=== PATIENT | female | born 1985 | race Caucasian/White ===

== ENCOUNTER 2018-08-31 14:02 | Observation (INO) | payer MEDICAID, SELFPAY ==
[2018-08-31 14:45] LABS: Chloride 98 mmol/L (98-107); Potassium 3.7 mmol/L (3.5-5.1); Sodium 136 mmol/L (136-145)
[2018-08-31] MEDS: Metoclopramide 10 MG TAB PO (15:30)
[2018-08-31] MEDS: Lactated Ringers 1,000 ML 150 ML IV (15:30)
--- NOTE | 2018-08-31 16:34 | DSE_ITS ---
Date of service: 08/31/18 Time of Service: 16:33 DS: Diagnosis Discharge Diagnosis (1) : Status: Acute (2) Hyperemesis affecting , antepartum: Status: Acute Asessment and Plan: Pt is a 32yo female with a LMP 06/30/18 who was initially seen at [facility] for office visit. The purpose of the visit was to discuss hyperemesis. Patient reports that for last month she has had daily nausea with other emesis or gagging during the day. She reports losing approximately 4 pounds since the onset of her symptoms. She was given a prescription for ondansetron which did not appear to help the nausea but she is also experienced significant constipation as result of the ondansetron. She is wondering if there is an alternative to her current medication regime. She is also concerned about the health of the fetus. Patient was was admitted to the center for brief observation. Laboratory studies were within normal limits no evidence of electrolyte imbalance. Vital signs stable brief bedside ultrasound was performed showing a viable talley IUP approximately 8 weeks 2 days estimated gestational age. Normal-appearing uterus adnexa and pelvis. Given a liter of lactated Ringer's a dose of Reglan 10 mg orally and 1 dose of 40 mg of Protonix IV. The plan at this time is to discharge her to home have her follow-up for scheduled visit on 09/02/2018 to assess satisfaction with the medication regime. Patient was counseled to take Dulcolax this evening and tomorrow morning to treat her constipation. She is agreeable to this plan Discharge Plan Disposition Patient Disposition: HOME Condition: Fair Discharge Details Reason For Visit: HYPERMESIS IN FIRST TRIMESTER Admit Date/Time: 08/31/18 14:02 Admit Provider: Claudia Benjamin Attending Provider: Claudia Benjamin Primary Care Provider: None,None Hospital Course Hospital Course: [facility] most of nausea malaise and concerns about both her and her fetuses well-being. She underwent evaluation on the center that showed normal electrolytes and she was given the opportunity to begin Reglan 10 mg orally every 6 hours which will be continued and on an outpatient basis and given a dose of IV Protonix. The plan is to begin a proton pump inhibitor for her GERD symptoms. The plan is to have her follow-up in 2 days for a previously scheduled appointment to obtain a formal dating ultrasound and also to assess satisfaction with medications and compliance. She is agreeable to this plan Home Meds and New Rx's Prescriptions: No Action Atabex DHA 200 200 mg capsule PO DAILY RF: 0 multivitamin [Daily Multiple] 1 EACH tablet 1 ea PO DAILY RF: 0 evening primrose oil [Evening Melvin] 500 MG capsule 500 mg PO DAILY RF: 0 folic acid 1 MG tablet 1 mg PO DAILY RF: 0 turmeric root extract 500 MG capsule 500 mg PO DAILY RF: 0 bee pollen 550 MG capsule 550 mg PO DAILY RF: 0 ondansetron HCl 4 mg tablet 4 mg PO TID PRN (Reason: nausea and vomiting) 5 Days Qty: 15 RF: 1 Discharge Instructions Additional Instructions: Begin Reglan 10 mg every 6 hours [id number]. You may use the ondansetron as needed but only after you have taken the Dulcolax to treat your constipation. A prescription for antacid has been faxed to your pharmacy in addition to the Reglan. Keep her appointment with Dr. Freire on Wednesday and let him know how you are feeling and if the medication has been effective. Activity:: Activity as Tolerated Equipment/Supplies:: No Equipment Needed Diet:: As Tolerated Discharge Orders Discharge Orders: Discharge Order (Routine); Ordered 08/31/18 Ordered By: Claudia Benjamin DS: Summary Time spent discussing smoking cessation with patient: 3 to 10 minutes Exam Const General: comfortable and no acute distress Resp Effort & Inspection: normal respiratory effort General: deferred Other: Transabdominal ultrasound performed while on the center is a viable talley intrauterine with a crown rump length consistent with 8-week 2-day gestation. Normal-appearing adnexa pelvis and uterus. 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
[2018-08-31] MEDS: Pantoprazole 40 MG VIAL IVP (16:52)
== END 2018-08-31 17:30 | disposition home or self-care (01) ==
PROVIDERS: Admitting Provider Obstetrics & Gynecology Gynecology; Visit Provider Obstetrics & Gynecology Gynecology
DX: O21.0 Mild hyperemesis gravidarum (principal); Z3A.08 8 weeks gestation of pregnancy
CPT/HCPCS: 36415; 80051; 96360; 96361; 99238; 76817; G0378

== ENCOUNTER 2018-09-13 16:37 | Outpatient (CLI) | payer MEDICAID, SELFPAY ==
[2018-09-13 17:28] LABS: Abs Immature Grans 0.01 k/cumm (0.0-0.09); Absolute Basophil Count 0.02 k/cumm (0.0-0.2); Absolute Eosinophil Count 0.05 k/cumm (0.0-0.7); Absolute Lymphocyte Count 1.89 k/cumm (1.2-3.4); Absolute Monocyte Count 0.74 k/cumm (0.11-0.7); Absolute Neutrophil Count 6.45 k/cumm (1.2-6.7); Basophils % 0.2; Eosinophils % 0.5; HCT 36.9 % (36.0-46.0); HGB 13.4 g/dL (12.0-15.5); Immature Grans % 0.1; Lymphocytes % 20.6; Mean Corp. HGB Concentration 36.3 g/dL (32.0-36.0); Mean Corpuscular Hemoglobin 31.2 pg (27.0-33.0); Mean Platelet Volume 9.8 fL (8.0-11.0); Monocytes % 8.1; Neutrophils % 70.5; Platelet Count 261 x1000/uL (130-400); RBC 4.29 m/cumm (4.00-5.20); White Blood Cell Count 9.16 k/cumm (4.4-10.8)
[2018-09-13 18:36] LABS: TSH (W/Ref FT4) 0.34 uIU/mL (0.358-3.74)
[2018-09-13 19:03] LABS: FREE T4 1.01 ng/dL (0.76-1.46)
[2018-09-15 09:26] LABS: Hepatitis B Surface Ag Negative (NEGAT)
[2018-09-15 09:49] LABS: HIV-1/2 Ag & Ab Screen Negative (NEGAT)
[2018-09-15 10:14] LABS: Hepatitis C Ab w Rflx HCV PCR Negative (NEGAT)
[2018-09-15 12:13] LABS: Varicella IgG Antibody Positive
[2018-09-15 12:16] LABS: Rubella IgG Ab (UVM) Positive; Syphilis Serology (RPR) Negative (Negative)
== END 2018-09-13 16:57 ==
PROVIDERS: Visit Provider Advanced Practice Midwife
DX: Z34.91 Encounter for supervision of normal pregnancy, unspecified, first trimester (principal); Z11.59 Encounter for screening for other viral diseases; Z01.84 Encounter for antibody response examination; Z11.4 Encounter for screening for human immunodeficiency virus [HIV]
CPT/HCPCS: 36415; 80055; 86787; 86803; 86850; 86900; 86901; 87340; 87389; 84439; 84443; 86592; 86762

== ENCOUNTER 2018-09-13 16:44 | Outpatient (REF) | payer MEDICAID, SELFPAY ==
[2018-09-13 18:26] LABS: *AMPHETAMINES SCREEN URINE Negative (Negative); *BARBITURATES SCREEN URINE Negative (Negative); *BENZODIAZEPINES SCREEN URINE Negative (Negative); Cannabinoids THC Negative (Negative); Cocaine Screen,Urine Negative (Negative); METHADONE URINE SCREEN Negative (Negative); OPIATES URINE SCREEN Negative (Negative)
[2018-09-13 18:42] LABS: Tricyclic Antidepressants Negative (Negative)
[2018-09-15 15:15] LABS: Chlamydia Result Negative; GC Result Negative; Specimen Description CERVICAL
[2018-09-20 07:17] LABS: Buprenorphine Negative; Norbuprenorphine Negative
== END 2018-09-13 17:04 ==
LOC: LBN 16:44
PROVIDERS: Visit Provider Advanced Practice Midwife
DX: Z34.91 Encounter for supervision of normal pregnancy, unspecified, first trimester (principal); Z11.3 Encounter for screening for infections with a predominantly sexual mode of transmission
CPT/HCPCS: 80307; 87491; 87591; 87086

== ENCOUNTER 2018-10-07 09:31 | Outpatient (CLI) | payer MEDICAID, SELFPAY ==
[2018-10-07 09:59] LABS: Kit/Specimen SENT
== END 2018-10-07 09:51 ==
PROVIDERS: Visit Provider Advanced Practice Midwife
DX: Z34.91 Encounter for supervision of normal pregnancy, unspecified, first trimester (principal)
CPT/HCPCS: 36415

== ENCOUNTER 2018-11-07 01:10 | Outpatient (CLI) | payer MEDICAID, SELFPAY ==
--- NOTE | 2018-11-07 16:11 | DI.US_ITS ---
Many abnormalities cannot be diagnosed. A normal exam does not exclude a congenital anomaly. Radiology No. LMP: Exam Date: 11/07/18 [facility] wks days on EDC ([facility]) 04/05/19 Confirmed: HISTORY: SURVEY, Z34.90 PREDICTED GESTATIONAL AGE NUMBER 18.5 weeks with a range of 17.5 week to 19.5 weeks. 1 Determined by___1STUS___LMP___HISTORY Info. pertaining to fetus # PLACENTA PRESENTATION Grade I Cephalic___ Anterior___Posterior__X_ Breech____ Right Left___X____ Transverse(head right___ Fundal___Low-lying___Previa___ Transverse(head left___ Varying___X___ BIOMETRY AMNIOTIC FLUID BPD: 44 mm 19.3 weeks Normal HC: 166 mm 19.2 weeks AC: 137 mm 19.1 weeks FL: 27 mm 18.1 weeks AMNIOTIC FLUID INDEX >26 WK CRL: mm weeks Cisterna Magna: 3.3 mm CI: 80.6 RUQ: LUQ Cerebellum: 1/97 cm EFW: 257 grams 49th Percentile RLQ: LLQ Total: cms Composite AGE= 19 wks EDC by US____04/03/19 BIOPHYSICAL PROFILE ANATOMY IDENTIFIED SCORE 0/2 Heart: 4-Chamber_X__Rate:BPM__145___ LVOT: X__ RVOT: X___ Amniotic Fluid(>2cms)____ Stomach:__X____ Kidneys:____X___ Respirations (>30 secs) Bladder: X___ Post. Fossa:___X Body Flex/Extension 3 vessel cord:__X Ventricles:___X cord insertion:__X___ Lips:_X___ Extremity Flex/Extension spinal morphology:___X Nose:X Total Score= Palate: X__ NS=not seen OB ultrasound was performed utilizing second trimester protocol. biometry is consistent with a gestational age of 19 weeks 0 days and an EDC of 04/03/19. Placenta is posterior with no evidence of a placenta previa. There is a normal quantity of amniotic fluid. anomaly screen is within normal limits as per the OB ultrasound worksheet.
== END 2018-11-07 01:30 ==
PROVIDERS: PCP General Practice; Visit Provider Advanced Practice Midwife
DX: Z34.92 Encounter for supervision of normal pregnancy, unspecified, second trimester (principal)
CPT/HCPCS: 76805

== ENCOUNTER 2019-01-12 13:43 | Outpatient (CLI) | payer MEDICAID, SELFPAY ==
[2019-01-12 14:09] LABS: HCT 35.1 % (36.0-46.0); HGB 11.9 g/dL (12.0-15.5); Mean Corp. HGB Concentration 33.9 g/dL (32.0-36.0); Mean Corpuscular Volume 91.4 fL (80-95); Mean Platelet Volume 9.6 fL (8.0-11.0); Platelet Count 227 x1000/uL (130-400); RBC 3.84 m/cumm (4.00-5.20); RBC Distribution Width 12.2 % (11.7-14.6); White Blood Cell Count 9.21 k/cumm (4.4-10.8)
[2019-01-12 14:16] LABS: Glucose,1 Hr (Glucola) 126 mg/dL (80-140)
== END 2019-01-12 14:03 ==
PROVIDERS: PCP General Practice; Visit Provider Advanced Practice Midwife
DX: Z34.92 Encounter for supervision of normal pregnancy, unspecified, second trimester (principal)
CPT/HCPCS: 82950; 85027

== ENCOUNTER 2019-03-17 12:51 | Outpatient (REF) | payer MEDICAID, SELFPAY | END 2019-03-17 13:11 | LOC: LBN 12:51 | PROVIDERS: PCP General Practice; Visit Provider Advanced Practice Midwife | DX: Z36.85 Encounter for antenatal screening for Streptococcus B; Z34.93 Encounter for supervision of normal pregnancy, unspecified, third trimester | CPT/HCPCS: 87081 ==

== ENCOUNTER 2019-04-11 13:28 | Inpatient (IN) | payer MEDICAID, SELFPAY ==
[2019-04-11 14:54] LABS: HCT 33.5 % (36.0-46.0); HGB 11.1 g/dL (12.0-15.5); Mean Corp. HGB Concentration 33.1 g/dL (32.0-36.0); Mean Corpuscular Hemoglobin 29.1 pg (27.0-33.0); Mean Corpuscular Volume 87.7 fL (80-95); Platelet Count 219 x1000/uL (130-400); RBC 3.82 m/cumm (4.00-5.20); White Blood Cell Count 7.96 k/cumm (4.4-10.8)
[2019-04-11 15:03] LABS: ROM Plus Positive
[2019-04-11] MEDS: Lactated Ringers 500 ML IV ×2 (18:30→19:05)
[2019-04-11] MEDS: FentaNYL/ROPIvacaine 2 mcg/ml and 0.1% 200 ML CADD Cassette EP (19:38)
[2019-04-11] MEDS: Calcium Carbonate *TUMS* 500 MG CHEW 1000 MG PO (23:34)
[2019-04-12] MEDS: fentaNYL 100 MCG/2 ML VIAL (02:58)
[2019-04-12] MEDS: Lactated Ringers 1,000 ML 125 ML IV (07:20)
[2019-04-12] MEDS: Lidocaine 1% Multi-Dose 20 ML VIAL (07:31)
[2019-04-12] MEDS: Acetaminophen 325 MG TAB 650 MG PO ×2 (08:44→19:50)
[2019-04-12] MEDS: Ibuprofen 600 MG TAB PO ×2 (08:45→19:50)
[2019-04-12] MEDS: Docusate Sodium 100 MG CAP PO (19:50)
[2019-04-13] MEDS: Docusate Sodium 100 MG CAP PO ×2 (12:00→12:02)
== END 2019-04-13 15:50 | disposition home or self-care (01) | DRG 807 ==
PROVIDERS: Admitting Provider Advanced Practice Midwife; PCP General Practice; Visit Provider Advanced Practice Midwife
DX: O48.0 Post-term pregnancy (principal); Z37.0 Single live birth; Z3A.40 40 weeks gestation of pregnancy; O64.8XX0 Obstructed labor due to other malposition and malpresentation, not applicable or unspecified; O62.1 Secondary uterine inertia; O70.1 Second degree perineal laceration during delivery; Z67.40 Type O blood, Rh positive
CPT/HCPCS: 84112; 85027; 86850; 86900; 86901; G0378; J3010; J3490

== ENCOUNTER 2019-12-23 13:01 | Emergency (ER) | payer MEDICAID, SELFPAY ==
--- NOTE | 2019-12-23 13:04 | ED.GENADUL_ITS ---
Discharge Plan Disposition Patient Disposition: HOME Condition: Good Discharge Details Chief Complaint: DentalOral Clinical Impression: Dental infection Primary Care Provider: Roberto Abdalla ED Provider: Cayla Mac Home Meds and New Rx's Prescriptions: New amoxicillin-pot clavulanate [Augmentin] 875-125 mg tablet 1 tab PO BID Qty: 13 RF: 0 Continued norethindrone (contraceptive) [Debi] 0.35 mg tablet 0.35 mg PO DAILY Qty: 84 RF: 3 Discharge Instructions Instructions: Dental Abscess (ED) Additional Instructions: Encourage water intake. Tylenol and ibuprofen as needed for discomfort. Please take the antibiotics as prescribed. Even if symptoms improve, please take the entire course. If you develop increased swelling, fever/chills or other new/worsening symptom please seek care urgently once again. Please contact local dentist regarding follow-up, list attached. Referrals: Rboerto Abdalla NP [Primary Care Provider] - Discharge Data Discharge Date/Time-TO BE ENTERED AT DEPARTURE: 12/23/19 15:07 Medical Decision Making <JENNIFER Abad - Last Filed: 12/24/19 13:51> Patient is a pleasant 34-year-old female presents today with chief complaint of left posterior dental pain. She reports the pain began 3 days ago and is progressively been increasing. Today, the pain is the point that she was having difficulty talking had a right letters to her mother. States that she was having difficulty opening her mouth. She denies any fevers or chills. States the pain can radiate down the left lateral neck. States that she has had infections in these teeth before. Does have history of impacted wisdom teeth on the side. Did attempt to get in with a dentist but was unsuccessful secondary to pandemic. She denies status. Denies dysphasia. No rash. No SOB. No fevers or chills. On exam, patient is resting comfortably and appears nontoxic. Vital signs significant for blood pressure of 143/88 and pulse of 94. She is afebrile. No lymphadenopathy. She does have trismus able to open 1 fingerbreadth at this time. There is swelling and erythema associated with the left inferior posterior tooth that does extend into the crevice between the upper and lower dentition. Tonsils are without abnormality. Uvula is midline. No swelling under the tongue. I am concerned for potential space-occupying abscess leading to trismus. Patient is also evaluated by Dr. Gale is questioning impacted tooth with overgrowth of gumline and infection. Will obtain CT to evaluate for potential abscess. Patient given dose of clindamycin. FINDINGS: Sinuses: Mild left maxillary sinus disease. Nasopharynx: Unremarkable. Oropharynx: Unremarkable. No significant tonsillar enlargement. Hypopharynx: Unremarkable. Larynx: Unremarkable. Normal epiglottis. Retropharyngeal space: Unremarkable. Submandibular/Parotid glands: Normal. Glands are normal in size. Thyroid: Normal. No enlarged or calcified nodules. Lymph nodes: Mildly prominent upper cervical nodes bilaterally. Trachea: Visualized trachea is unremarkable. Lungs: Unremarkable as visualized. Dental: Apparent lucency or cavity left upper 3rd molar. Correlate clinically. Bones/joints: Unremarkable. No acute fracture. Soft tissues: Edematous change subcutaneous soft tissues superficial and anterior to the left masseter muscle. No definite focal fluid collection identified. IMPRESSION: 1. Edematous change subcutaneous soft tissues superficial and anterior to the left masseter muscle. No definite focal fluid collection identified. 2. Apparent lucency or cavity left upper 3rd molar. Correlate clinically Discussed these findings with the patient. Advise dental infection. Encourage hydration. Encourage close follow-up with dentist. List of open and local dentist were given to the patient, she will call on Wednesday to schedule follow-up appointment. Patient started on Augmentin. She was given strict return precautions. We discussed home options to help pain control. All of her questions or concerns were addressed and she is in agreement this plan. <Nas Gale MD - Last Filed: 12/24/19 13:46> Patient seen, examined, and discussed with JENNIFER Mac. Labs reviewed. CT of the face reviewed by radiology and no signs of abscess. Suspect impacted and infected tooth. Plan to treat with augmentin and have patient follow-up with dentist. I agree with treatment plan as discussed/documented. HPI <JENNIFER Abad - Last Filed: 12/24/19 13:51> General Mode of arrival: ambulatory . Date/Time Provider Initiated Documentation: 12/23/19 13:04 . Limitations to Documentation: no limitations . Information obtained by: patient and RN notes reviewed . History of Present Illness 34 year old F presents to the emergency department with the chief complaint of left tooth pain, described as mild, with intensity rated at 1. Quality is described as aching, and is localized to the mouth. Patient reports radiation to (jaw and upper left neck). Patient started experiencing this day(s) (4) and it has been constant. Medication improves symptom(s), (currently improved after NSAID) Eating worsens symptoms . Patient notes denies chest pain, cough, fever/chills, headaches, loss of appetite, nausea/vomiting, rash and shortness of breath. Patient did receive the following treatments prior to arrival, NSAID Related Data Home Medications Medication Instructions Recorded Confirmed norethindrone (contraceptive) 0.35 0.35 mg PO DAILY #84 tab 11/07/19 12/23/19 mg tablet amoxicillin-pot clavulanate 1 tab PO BID #13 tab 12/23/19 [Augmentin] Previous Rx's Medication Instructions Recorded norethindrone (contraceptive) 0.35 0.35 mg PO DAILY #84 tab 11/07/19 mg tablet amoxicillin-pot clavulanate 1 tab PO BID #13 tab 12/23/19 [Augmentin] Allergies Allergy/AdvReac Type Severity Reaction Status Date / Time No Known Allergies Allergy Verified 12/23/19 13:13 Review of Systems <JENNIFER Abad - Last Filed: 12/24/19 13:51> Constitutional Constitutional: Reports as per HPI, Denies chills, Denies fatigue, Denies fever(s), Denies headache(s) and Denies poor appetite Eyes Eyes: Denies change in vision and Denies irritation ENT Ears, Nose, Mouth, and Throat: Reports as per HPI, Reports dental pain, Denies dysphagia, Denies dizziness, Denies dry mouth, Denies ear discharge, Denies otalgia, Reports facial pain, Denies headache(s), Denies hoarseness, Denies lip swelling, Denies nasal congestion, Denies odynophagia and Denies sore throat Cardiovascular Cardiovascular: Reports as per HPI and Denies chest pain Respiratory Respiratory: Reports as per HPI and Denies cough Gastrointestinal Gastrointestinal: Reports as per HPI, Denies dysphagia, Denies nausea, Denies od ynophagia and Denies vomiting Integumentary/Breasts Skin/Breast: Reports as per HPI, Denies erythema, Denies rash and Denies skin pain Neurologic Neurologic: Reports as per HPI, Denies dizziness and Denies headache(s) Endocrine Endocrine: Denies fatigue Allergic/Immunologic Allergic/Immunologic: Denies lip swelling PFSH <JENNIFER Abad - Last Filed: 12/24/19 13:51> Medical History Fear of developing breast cancer (Acute) MGM: Postmenopausal breast CA. Maternal aunt: premenopausal breast CA in her 40's. . Maternal aunt: premenopausal breast CA. BRCA neg. MAunt: ovarian CA. Alive. Mom- no cancer. [place] [facility] [place]. 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 Date GA/Weeks # Outcome Route Wgt Sex Labor Lgth Anesthes ia Location [facility] 10/19/09 42 No Successful vaginal 3.799 kg Female [facility] 04/12/19 40 No Successful vaginal 4.252 kg Male 9hrs 26 min Lara Rodriguez Delivery Date: 10/19/09 vacuum delivery. intact. fracture near coccyx and symphysic pubis. Severe pain after delivery. Fractures identified later during PT. Rosa Maria Francis Delivery Date: 04/12/19 Forceps delivery, arrest of descent, perineal laceration requiring repair Fariha Hameed Exam <JENNIFER Abad - Last Filed: 12/24/19 13:51> Const General: cooperative, healthy appearing, comfortable, no acute distress, well developed and well groomed Nutritional Appearance: average body habitus and well nourished Orientation: alert and awake [facility] Head: normal to inspection, normocephalic and atraumatic Ears: hearing grossly normal bilaterally, external ears normal and TM's normal bilaterally General nose exam: external nose normal and nares normal Face and sinus: abnormal facial exam (swelling left cheek), sinuses nontender, face asymmetric, no crepitus, no ecchymosis, no erythema, no fluctuance, no maxillary instability and no tenderness Mouth: lip normal, tongue normal, salivary ducts normal, moist mucous membranes, no muffled voice (sounds clear, patient feels off from her baseline), trismus and restricted motion Throat: posterior oropharynx normal, tonsils normal and uvula midline Eyes General: appearance normal, both eyes and all related structures Neck Neck: normal visual inspection, full ROM, no lymphadenopathy, supple and no anterior neck swelling Resp Effort & Inspection: normal respiratory effort, able to speak in complete sentences and no respiratory distress Auscultation: clear to auscultation bilaterally, no rales, no rhonchi and no wheezes Cardio Rate: regular rate Rhythm: regular rhythm Heart Sounds: S1 normal and S2 normal Skin General skin exam: no rashes or lesions noted Trauma: no lacerations or abrasions Neuro General: patient alert and patient awake Cognition: normal cognition Speech: speech normal Gait: normal gait Psych Appearance: grossly normal and well kempt Mental Status: mental status grossly normal Speech and Movement: speech and movement normal
[2019-12-23 13:06] VITALS: BP 143/88; PULSE 94; RESP 18; TEMP 36.3; O2SAT 97
[2019-12-23 13:41] LABS: Abs Immature Grans 0.02 k/cumm (0.0-0.09); Absolute Basophil Count 0.01 k/cumm (0.0-0.2); Absolute Eosinophil Count 0.15 k/cumm (0.0-0.7); Absolute Lymphocyte Count 1.66 k/cumm (1.2-3.4); Absolute Monocyte Count 1.04 k/cumm (0.11-0.7); Absolute Neutrophil Count 6.53 k/cumm (1.2-6.7); Basophils % 0.1; Eosinophils % 1.6; HCT 39.9 % (36.0-46.0); HGB 14.1 g/dL (12.0-15.5); Immature Grans % 0.2 %; Lymphocytes % 17.6; Mean Corp. HGB Concentration 35.3 g/dL (32.0-36.0); Mean Corpuscular Hemoglobin 31.1 pg (27.0-33.0); Mean Corpuscular Volume 87.9 fL (80-95); Mean Platelet Volume 9.2 fL (8.0-11.0); Monocytes % 11.1; Neutrophils % 69.4; Platelet Count 276 x1000/uL (130-400); RBC 4.54 m/cumm (4.00-5.20); RBC Distribution Width 11.9 % (11.7-14.6); White Blood Cell Count 9.41 k/cumm (4.4-10.8)
[2019-12-23] MEDS: Omnipaque 350 MG/ML 100 ML BTL IJ (13:52)
[2019-12-23 13:53] LABS: ALT 20 U/L (14-59); AST 16 U/L (15-37); Albumin 4.3 g/dL (3.4-5.0); Alkaline Phosphatase 97 U/L (46-116); Anion Gap 8.1 mmol/L (3-11); BUN 11 mg/dL (7-18); Bilirubin, Total 0.6 mg/dL (0.2-1.0); CO2 27.9 mmol/L (21.0-32.0); CREATININE 0.74 mg/dL (0.55-1.02); Calcium 9.4 mg/dL (8.5-10.1); Chloride 102 mmol/L (98-107); Glucose 121 mg/dL (74-106); Potassium 3.6 mmol/L (3.5-5.1); Sodium 138 mmol/L (136-145)
[2019-12-23] MEDS: Normal Saline - Diluent 50 ML VIAL IV (13:53)
--- NOTE | 2019-12-23 13:55 | DI.CT_ITS ---
EXAM: CT NECK W CLINICAL HISTORY: dental abscess with trismus COMPARISON: No exams were available for comparison FINDINGS: CT examination of the neck was performed with intravenous infusion 100 cc of Omnipaque 350. Images obtained through the lung apices are unremarkable. Tracheolaryngeal structures appear intact. Visualized brain and orbits are unremarkable. Mild mucoperiosteal thickening noted left maxillary antrum. Otherwise paranasal sinuses and mastoid air cells appear clear. No cervical adenopathy. Salivary glands appear intact. No vascular abnormality identified. There is soft tissue edema associated with subcutaneous fat adjacent to left masseter muscle. A marke r is placed at this site. There is an apparent dental cavity, left 3rd molar. No abscess identified in the soft tissues.. IMPRESSION: Findings suggesting soft tissue infection associated with dental disease as described above. No soft tissue abscess seen. No other significant findings.
[2019-12-23] MEDS: Normal Saline 1,000 ML 1000 ML IV (14:05)
[2019-12-23] MEDS: CLINDAMYCIN 600 MG/50 ML BAG 100 MG IVPB (14:05)
[2019-12-23 14:25] VITALS: BP 118/73; PULSE 85; RESP 16; TEMP 36.6; O2SAT 100
--- NOTE | 2019-12-23 14:36 | DI.VRAD_ITS ---
PROCEDURE INFORMATION: Exam: CT Neck With Contrast Exam date and time: 12/23/2019 1:19 PM Age: 34 years old Clinical indication: Patient HX: Dental abscess with trismus, patient sts pain left side of face, swelling are area of bb marker on CT. Bb marker placed to note area of pain and swelling. TECHNIQUE: Imaging protocol: Computed tomography images of the neck with intravenous contrast. Radiation optimization: All CT scans at this facility use at least one of these dose optimization techniques: automated exposure control; mA and/or kV adjustment per patient size (includes targeted exams where dose is matched to clinical indication); or iterative reconstruction. Contrast material: OMNIPAQUE 350; Contrast volume: 100 ml; Contrast route: IV; COMPARISON: No relevant prior studies available. FINDINGS: Sinuses: Mild left maxillary sinus disease. Nasopharynx: Unremarkable. Oropharynx: Unremarkable. No significant tonsillar enlargement. Hypopharynx: Unremarkable. Larynx: Unremarkable. Normal epiglottis. Retropharyngeal space: Unremarkable. Submandibular/Parotid glands: Normal. Glands are normal in size. Thyroid: Normal. No enlarged or calcified nodules. Lymph nodes: Mildly prominent upper cervical nodes bilaterally. Trachea: Visualized trachea is unremarkable. Lungs: Unremarkable as visualized. Dental: Apparent lucency or cavity left upper 3rd molar. Correlate clinically. Bones/joints: Unremarkable. No acute fracture. Soft tissues: Edematous change subcutaneous soft tissues superficial and anterior to the left masseter muscle. No definite focal fluid collection identified. IMPRESSION: 1. Edematous change subcutaneous soft tissues superficial and anterior to the left masseter muscle. No definite focal fluid collection identified. 2. Apparent lucency or cavity left upper 3rd molar. Correlate clinically. Dictated and Authenticated by: Dean Hernandez MD. Ordering:MAHI Kulkarni MD
[2019-12-23] MEDS: Amoxicillin 875/Clav. 125 TAB PO (14:55)
[2019-12-23 15:14] VITALS: BP 118/73; PULSE 85; RESP 16; TEMP 36.6; O2SAT 100
== END 2019-12-23 15:07 | disposition home or self-care (01) ==
PROVIDERS: Emergency Provider Physician Assistant; PCP Nurse Practitioner Family
DX: R68.84 Jaw pain (principal); K04.7 Periapical abscess without sinus; R25.2 Cramp and spasm
CPT/HCPCS: 36415; 70491; 80053; 81025; 96361; 96365; 99285; 85025; J3490

== ENCOUNTER 2021-03-06 22:06 | Outpatient (REF) | payer MEDICAID, SELFPAY ==
[2021-03-06 19:31] LABS: TSH (W/Ref FT4) 0.68 uIU/mL (0.36-3.74)
[2021-03-07 16:33] LABS: T3,Free 3.8 pg/mL (2.8-5.3)
[2021-03-07 16:46] LABS: T3, Total 113 ng/dL (97-169)
== END 2021-03-06 22:07 | disposition home or self-care (01) ==
LOC: NCHCN 22:06
PROVIDERS: PCP Nurse Practitioner Family; Visit Provider Nurse Practitioner Family
DX: Z13.29 Encounter for screening for other suspected endocrine disorder (principal)
CPT/HCPCS: 84443; 84480; 84481

== ENCOUNTER 2021-05-01 08:49 | Outpatient (CLI) | payer MEDICAID, SELFPAY ==
--- NOTE | 2021-05-01 08:30 | DI.RAD_ITS ---
Exam(s) XR ANKLE LT COMPLETE EXAM: XR ANKLE LT COMPLETE CLINICAL HISTORY: closed distal fibula fracture TECHNIQUE: 2D digital imaging was performed. COMPARISON: CR XR ANKLE 3 VIEWS LEFT from 03/30/2021 CR XR ANKLE 3 VIEWS LEFT from 03/30/2021 FINDINGS: BONES: There is no change in alignment of the transverse fracture through the distal fibula. The fra cture lies just inferior to the level of the ankle mortise. No other fracture or dislocation is seen . No bony destructive lesion is seen. JOINTS:The ankle mortise is normally aligned. SOFT TISSUE: Minimal soft tissue swelling is seen about the ankle laterally. IMPRESSION: Stable nondisplaced distal left fibular fracture. DATA REPOSITORY: RADIATION DOSE DELIVERED:
== END 2021-05-01 08:50 | disposition home or self-care (01) ==
LOC: DIORS 08:50
PROVIDERS: PCP Nurse Practitioner Family; Referring Provider Nurse Practitioner Family; Visit Provider Student in an Organized Health Care Education/Training Program
DX: S82.832A Other fracture of upper and lower end of left fibula, initial encounter for closed fracture (principal); X58.XXXA Exposure to other specified factors, initial encounter
CPT/HCPCS: 73610

== ENCOUNTER 2021-06-06 08:10 | Outpatient (CLI) | payer MEDICAID, SELFPAY ==
--- NOTE | 2021-06-06 07:45 | DI.RAD_ITS ---
Exam(s) XR ANKLE LT COMPLETE EXAM: XR ANKLE LT COMPLETE CLINICAL HISTORY: f/u distal fibula fracture TECHNIQUE: 2D digital imaging was performed of the left ankle. Three images were obtained. AP, lat eral and oblique views were obtained. COMPARISON: CR XR ANKLE 3 VIEWS LEFT from 03/30/2021 CR XR ANKLE 3 VIEWS LEFT from 03/30/2021 CR XR ANKLE LT COMPLETE from 05/01/2021 CR XR ANKLE LT COMPLETE from 05/01/2021 FINDINGS: BONES: There has been continued healing of the nondisplaced distal left fibular fracture. No new fra cture is identified. No bony destructive lesion is seen. JOINTS:The ankle mortise is normally aligned. SOFT TISSUE: Normal. IMPRESSION: Continued healing of the nondisplaced distal left fibular fracture. DATA REPOSITORY: RADIATION DOSE DELIVERED:
== END 2021-06-06 08:11 | disposition home or self-care (01) ==
LOC: DIORS 08:10
PROVIDERS: PCP Nurse Practitioner Family; Referring Provider Nurse Practitioner Family; Visit Provider Student in an Organized Health Care Education/Training Program
DX: S82.832D Other fracture of upper and lower end of left fibula, subsequent encounter for closed fracture with routine healing (principal)
CPT/HCPCS: 73610

== ENCOUNTER 2022-09-04 17:54 | Outpatient (REF) | payer MEDICAID, SELFPAY ==
[2022-09-04 17:49] LABS: Bilirubin Negative (Negative); Blood Negative (Negative); Clarity Sl Cloudy (Clear); Glucose Negative (Negative); Ketones Negative (Negative); Leukocyte Esterase Negative (Negative); Nitrite Negative (Negative); Specific Gravity 1.025 (1.005-1.025); Urobilinogen 0.2 EU/dL (Up TO 0.2); pH 5.5 (5-8)
== END 2022-09-04 17:55 | disposition home or self-care (01) ==
LOC: LBN 17:54
PROVIDERS: PCP Nurse Practitioner Family; Visit Provider Advanced Practice Midwife
DX: Z01.419 Encounter for gynecological examination (general) (routine) without abnormal findings (principal)
CPT/HCPCS: 81003

== ENCOUNTER 2022-10-02 00:29 | Outpatient (CLI) | payer MEDICAID, SELFPAY ==
--- NOTE | 2022-10-02 07:30 | DI.MAMMO_ITS ---
Exam(s) MAMMO SCREENING EXAM: MAMMO SCREENING CLINICAL HISTORY: screening TECHNIQUE: Mammograms were interpreted according to the usual protocol including computer analysis w [employer] CAD system, tomosynthesis and C-view imaging. COMPARISON: None. Baseline examination. FINDINGS: The breasts are composed of heterogeneously dense fibroglandular densities, Breast Density category C . No suspicious masses or suspicious microcalcifications are seen. No skin thickening or abnormal axillary lymph nodes are seen. IMPRESSION: BI-RADS Category 1, Negative mammogram. Yearly screening mammography is recommended. Breast Density Category C, heterogeneously Dense. The mammogram demonstrates the patient's breast tissue is dense. Dense breast tissue is very common a nd is not abnormal but dense breast tissue can make it harder to find cancer on a mammogram. Also, de nse breast tissue may increase breast cancer risk. This information about the result of the mammogram report was provided to the patient to raise their awareness. Use this report when you speak with the patient about their risks for breast cancer, which includes their family history. At that time, you may recommend additional screening tests (Ultrasound or MRI) as they might be useful based on their r isk. A negative radiographic report should not delay biopsy if a dominant or clinically suspicious mass is present. Up to ten percent of cancers are not identified on mammography. A negative report may reinforce clinical impression. Adenosis and dense breasts may obscure an underlying neoplasm. False positive reports average 6 to 10%.
== END 2022-10-02 00:49 ==
LOC: DI 00:29
PROVIDERS: PCP Nurse Practitioner Family; Visit Provider Advanced Practice Midwife
DX: Z12.31 Encounter for screening mammogram for malignant neoplasm of breast (principal); R92.8 Other abnormal and inconclusive findings on diagnostic imaging of breast
CPT/HCPCS: 77063; 77067

== ENCOUNTER 2022-10-02 00:57 | Outpatient (CLI) | payer MEDICAID, SELFPAY ==
[2022-10-02 07:18] LABS: HCT 42.4 % (36.0-46.0); MCH 28.9 pg (27.0-33.0); MCV 87 fL (80-95); MPV 9.7 fL (8.0-11.0); Platelet Count 248 10^3/uL (130-400); RBC 4.85 10^6/uL (3.93-5.22); RDW 11.8 % (11.7-14.6); RDW-SD 37.4 fL; WBC 6.61 10^3/uL (4.4-10.8)
[2022-10-02 07:35] LABS: Hemoglobin A1C 5.2 % (<5.7)
[2022-10-02 07:51] LABS: ALT 15 U/L (14-59); AST 13 U/L (15-37); Albumin 4.1 g/dL (3.4-5.0); Alkaline Phosphatase 64 U/L (46-116); Anion Gap 7.6 mmol/L (3-11); BUN 15 mg/dL (7-18); Bilirubin, Total 0.6 mg/dL (0.2-1.0); CO2 29.4 mmol/L (21.0-32.0); CREATININE 0.8 mg/dL (0.55-1.02); Calculated LDL 92 mg/dL (<100); Chloride 103 mmol/L (98-107); Cholesterol 177 mg/dL (<200); Estimated GFR 97.26 (mL/min/1.73m2); Glucose 96 mg/dL (74-106); HDL Cholesterol 71 mg/dL (40-60); Potassium 3.8 mmol/L (3.5-5.1); Sodium 140 mmol/L (136-145); TSH (W/Ref FT4) 1.21 uIU/mL (0.36-3.74); Total Protein 7.2 g/dL (6.4-8.2); Triglyceride 70 mg/dL (<150)
[2022-10-02 08:23] LABS: Vitamin D 25 Total 31.5 ng/mL (30-100)
[2022-10-02 19:55] LABS: T3,Free 4.5 pg/mL (2.8-5.3)
[2022-10-02 20:09] LABS: T3, Total 131 ng/dL (97-169)
[2022-10-02 21:19] LABS: Thyroglobulin Antibody <15 U/mL (<=60); Thyroperoxidase Antibody <28 U/mL (<=60)
[2022-10-11 19:30] LABS: Testosterone, Free 1.26 ng/dL (<0.13-1.00); Testosterone, Total 65 ng/dL (8-60)
== END 2022-10-02 00:58 | disposition home or self-care (01) ==
LOC: LBO 00:57
PROVIDERS: PCP Nurse Practitioner Family; Visit Provider Advanced Practice Midwife
DX: R53.83 Other fatigue (principal); R63.5 Abnormal weight gain; Z01.419 Encounter for gynecological examination (general) (routine) without abnormal findings; L67.8 Other hair color and hair shaft abnormalities
CPT/HCPCS: 36415; 80053; 80061; 82306; 84402; 84403; 85027; 86376; 83036; 84443; 84480; 84481

== ENCOUNTER 2022-10-22 18:26 | Outpatient (REF) | payer MEDICAID, SELFPAY ==
[2022-10-22 20:58] LABS: Epithelial Cells Few HPF (Negative); RBC 0-2 HPF (0-2)
[2022-10-22 20:59] LABS: Bacteria Few HPF (Negative); C & S Indicated? C&S Done As Ordered; Casts Negative LPF (Negative); Crystals Negative HPF (Negative); Mucus Negative (Negative)
== END 2022-10-22 18:27 | disposition home or self-care (01) ==
LOC: LBN 18:26
PROVIDERS: PCP Nurse Practitioner Family; Visit Provider Nurse Practitioner Family
DX: R10.30 Lower abdominal pain, unspecified (principal); R82.998 Other abnormal findings in urine
CPT/HCPCS: 81015; 87086

== ENCOUNTER 2022-10-29 06:04 | Day surgery (SDC) | payer MEDICAID, SELFPAY ==
[2022-10-29] VITALS (8 sets, daily range): BP systolic 105–143; BP diastolic 77–112; PULSE 65–92; RESP 16–28; TEMP 36.2–36.6; O2SAT 91–100; BMI 26.1
[2022-10-29] MEDS: Lactated Ringers 1,000 ML 125 ML IV (06:47)
--- NOTE | 2022-10-29 07:11 | W.ANESPRE ---
General Info Date of Service Date Performed: 10/29/22 Height: 5 ft 7 in Weight: 75.69 kg Body Mass Index (BMI): 26.1 Surgical Procedure: Operation Date: 10/29/22 07:40 Proposed Procedure Side Surgeon p Salpingectomy Laparoscopic Bilateral Kasia Arias MD Meds Allergies and Home Medications Allergies Allergy/AdvReac Type Severity Reaction Status Date / Time No Known Allergies Allergy Verified 10/29/22 06:22 Home Medication Medication Instructions Recorded cyclobenzaprine 10 mg tablet 10 mg PO TID 10/23/22 Current Visit Medications: Current Medications Generic Name Dose Route Start Last Admin Trade Name Freq PRN Reason Stop Dose Admin Ringer's Solution 1,000 mls @ 125 mls/hr 10/29/22 06:00 10/29/22 06:47 IV 11/27/22 23:59 125 mls/hr INFUSION BRIDGER Administration IV Miscellaneous Supplies 1 each 10/29/22 06:00 Iv Access IV 11/27/22 23:59 DIRECTED BRIDGER Sodium Chloride 0 ml 10/29/22 06:00 Normal Saline Flush 10 Ml Syr IV 11/27/22 23:59 PRN PRN Sodium Chloride 0 ml 10/29/22 06:00 Normal Saline 10 Ml Vial IJ 11/27/22 23:59 DIRECTED PRN Sterile Water 0 ml 10/29/22 06:00 Water,Injection,Sterile 10 Ml Vial IJ 11/27/22 23:59 DIRECTED PRN PFSH Active Problems Active Problems: Problem Status Onset Code Irregular intermenstrual bleeding N92.1 Abnormal facial hair L67.8 Weight gain R63.5 Medical History Medical History Closed fracture of left distal fibula (03/30/21) Encounter for counseling regarding contraception Patient desires permanent sterilization. Family history of breast cancer Fatigue Fear of developing breast cancer MGM: Postmenopausal breast CA. Maternal aunt: premenopausal breast CA in her 40's. . Maternal aunt: premenopausal breast CA. BRCA neg. MAunt: ovarian CA. Alive. Mom- no cancer. Patient has been referred to [facility] familial cancer program. Tobacco Smoking/Tobacco Use Status: Never Alcohol Alcohol Intake: current Alcohol intake frequency: holidays/special occasions only Alcohol type: wine Substance Use Substance use type: does not use Prental History History 3 Para 2 Hx # Term Pregnancies 2 Multiple births 0 Hx # Pregnancies 0 Ectopic pregnancies 0 AB induced 0 Hx Number of Living Children 2 AB spontaneous 1 Past Pregnancies Del. Date GA/Weeks # Preg Succ Route Wgt Sex Labor Lgth Anesthesia Location Prov Complic 10/19/09 42 No vaginal 3798.836 g Female 40 [facility] 04/12/19 40 No vaginal 4252.428 g Male 9hrs 26 min [facility] Delivery Date: 10/19/09 Last Updated by: Rosa Maria Francis CNM vacuum delivery. intact. fracture near coccyx and symphysic pubis. Severe pain after delivery. Fractures identified later during PT. Delivery Date: 04/12/19 Last Updated by: Fariha Graves LPN Forceps delivery, arrest of descent, perineal laceration requiring repair Vital Signs and Lab Results Vital Signs Most Recent Vital Signs in EMR: Most Recent Vital Signs Temp Pulse Resp BP Pulse Ox 36.6 C 85 16 118/88 98 10/29/22 06:11 10/29/22 06:11 10/29/22 06:11 10/29/22 06:11 10/29/22 06:11 Point of Care Results Point of Care Results: POC- Test(urine) Negative 10/29/22 07:10 Lab Results Blood Type / Crossmatch: No Data to Display Complete Blood Count: White Blood Count 6.61 10^3/uL (4.4-10.8) 10/02/22 07:07 Red Blood Count 4.85 10^6/uL (3.93-5.22) 10/02/22 07:07 Hemoglobin 14.0 g/dL (11.2-15.7) 10/02/22 07:07 Hematocrit 42.4 % (36.0-46.0) 10/02/22 07:07 Platelet Count 248 10^3/uL (130-400) 10/02/22 07:07 Complete Metabolic Panel: Sodium 140 mmol/L (136-145) 10/02/22 07:07 Potassium 3.8 mmol/L (3.5-5.1) 10/02/22 07:07 Chloride 103 mmol/L (98-107) 10/02/22 07:07 Carbon Dioxide 29.4 mmol/L (21.0-32.0) 10/02/22 07:07 BUN 15 mg/dL (7-18) 10/02/22 07:07 Creatinine 0.8 mg/dL (0.55-1.02) 10/02/22 07:07 Est GFR (CKD-EPI 2020) 97.26 (mL/min/1.73m2) 10/02/22 07:07 Calcium 9.0 mg/dL (8.5-10.1) 10/02/22 07:07 Albumin 4.1 g/dL (3.4-5.0) 10/02/22 07:07 Glucose 96 mg/dL (74-106) 10/02/22 07:07 Hemoglobin A1c 5.2 % (<5.7) 10/02/22 07:07 Liver Function Panel: Alanine Aminotransferase (ALT/SGPT) 15 U/L (14-59) 10/02/22 07:07 Aspartate Amino Transf (AST/SGOT) 13 U/L (15-37) L 10/02/22 07:07 Coagulation Panel: No Data to Display Cardiac Panel: No Data to Display Arterial Blood Gas: No Data to Display Venous Blood Gas: No Data to Display Pancreas Panel: No Data to Display Thyroid Panel: Thyroid Stimulating Hormone (TSH) 1.21 uIU/mL (0.36-3.74) 10/02/22 07:07 Total Triiodothyronine 131 ng/dL (97-169) 10/02/22 07:07 Infectious Disease: No Data to Display Blood Cultures: No Data to Display Toxicology Panel: No Data to Display Panel: No Data to Display Anesthesia Assessment and Plan Anesthesia History Personal History: No History of General Anesthesia Family History: No Family History of Anesthesia Complications Exercise Tolerance Exercise Tolerance: Metabolic Equivalents>4 Pertinent Negatives Pertinent Negatives: No Symptoms of GERD, No Major Cardiovascular Symptoms or Complaints, No Major Pulmonary Symptoms or Complaints and No History of CVA/TIA Cardiac & Pulmonary Exam Cardiac Exam: Normal S1/S2 Heart Sounds Pulmonary Exam: Clear Bilateral Breath Sounds Implantable Cardiac Device Does patient have a Pacemaker or an ICD?: No Airway Exam Known Difficult Airway: No Mallampati Class: 2 Mouth Opening: Normal (> 3cm) Thyromental Distance: Greater than 3 cm Neck Range of Motion: Full ROM Neck Circumference: Normal Teeth Condition: Normal Dentition (left sided wisdom teeth broken, gets infection 1-2 times a year, awaiting removal) ASA Classification ASA Score: ASA 2 Emergency Case?: No NPO Status NPO Status: NPO Clears >2 hours, Solids >8 hours and NPO Formula >6 hours Status Status: Negative HCG Anesthesia Plan Resuscitation Status: Full Code Anesthesia Technique: General Anesthesia Airway Planned: Endotracheal Tube Monitors Used: Standard Monitors
[2022-10-29] MEDS: Bupivacaine 0.25% Pres-Free 30 ML VIAL (08:15)
--- NOTE | 2022-10-29 08:20 | FALL_PTH ---
PATIENT: Brittany Paez LOC: [facility] U#:[id number] AGE/SX: 37/F ROOM: RE10/29/[address]: Kasia Arias MD : [id number] BED: DIS: 10/29/2022 SPEC #: [id number] RECD: 10/29/22 12:30 STATUS: HELLEN REMayda #: [id number] YAMILA: 10/29/22 08:[address]: Kasia Arias DEPT: Surgical Specimen RECD BY: Beth Alford ENTERED: 10/29/22 12:32 SP TYPE: Fall OTHR DR: Zulema Ramos Tissues: 1 - FALLOPIAN TUBE (STERILIZATION) Procedures: GROSS AND MICRO LEVEL 2 Comments: [id number]
--- NOTE | 2022-10-29 08:49 | W.PM.OP ---
Date of service: 10/29/22 Time of Service: 08:50 Operative Note Operative Note DATE OF PROCEDURE: 10/29/22 PRE-OP DIAGNOSIS: Desires permanent sterilization POST-OP DIAGNOSIS: same PROCEDURE: Laparoscopic bilateral tubal ligation via salpingectomy SURGEON: Kasia Arias ASSISTING SURGEON: Candy Quiles Refer to Anesthesia Record COMPLICATIONS: None Patient was transported to: PACU Patient's condition: stable Indications: Desires permanent sterilization Findings: Normal appearing uterus, ovaries, tubes and appendix Procedure Description: After informed consent was signed the patient was taken to the operating room and given general anesthesia.? SCDs were placed on her legs.? She was prepped and draped in the dorsal lithotomy position in the [facility].? Her bladder had been emptied just prior to entering the OR. A speculum was placed into the vagina to expose the cervix and a hulka manipulator was placed into the cervix. The speculum was removed. Gloves were changed and attention was turned to the abdomen. The infraumbilical fold was grasped and injected with 0.25% marcaine with epinephrine. A 5mm incision was made in the infraumbilical fold with the scalpel. A hemostat was used to bluntly dissect the subcuticular layers. The fascia was grasped with two Kochers and incised with the scalpel. The insicion was extended bluntly with a hemostat. The peritoneum was entered bluntly. Then the trocar was inserted. Once entrance to the abdominal cavity was confirmed the CO2 was turned on and the abdomen was insufflated. Two lateral 5mm ports were then placed under direct visualization. The left tube was identified and followed to the fimbriated end. The tube was grasped and elevated and the mesosalpinx was clamped, cauterized and cut with the ligasure device. The was continued along the length of the tube. The proximal end of the tube was then transected with the ligasure. Good hemostasis was noted. The right tube was then identified and followed to the fimbriated end. The tube was grasped and elevated and the mesosalpinx was clamped, cauterized and cut with the ligasure device. The was continued along the length of the tube. The proximal end of the tube was then transected with the ligasure. Good hemostasis was noted on both sides. The ports were removed. The gas was released from the abdomen. The skin incisions were then closed with 4-0 vicryl. Mastisol and steristrips were placed. The manipulator was removed. The patient was placed back into the supine position.? She was moved to the stretcher and taken to the recovery room in stable condition.
[2022-10-29] MEDS: fentaNYL 100 MCG/2 ML VIAL IVP (09:01)
[2022-10-29] MEDS: Ondansetron 4 MG/2 ML VIAL IVP (09:08)
--- NOTE | 2022-10-29 09:18 | W.PM.DSUDISC ---
Date of service: 10/29/22 Time of Service: 09:19 Discharge Plan Disposition Patient Disposition: Home Condition: Stable Discharge Details Attending Provider: Kasia Arias Primary Care Provider: Zulema Ramos Home Meds and New Rx's Prescriptions: No Action cyclobenzaprine 10 mg tablet 10 mg PO TID Discharge Instructions Activity:: no lifting >25lbs Remove Dressings/Wound Care:: 48 hours Shower/Bathe:: 24 hours Diet:: As Tolerated Discharge Orders Discharge Orders: Discharge Order (Routine); Ordered 10/29/22 Ordered By: Kasia Arias DS: Diagnosis Discharge Diagnosis (1) History of tubal ligation:
--- NOTE | 2022-10-29 10:40 | W.ANESPOSTOP ---
Postoperative Evaluation Date, Time and Location Date Performed: 10/29/22 Time Performed: 10:31 Patient Location: Day Surgery Unit Vital Signs Most Recent Imported Vital Signs: Most Recent Vital Signs Temp Pulse Resp BP Pulse Ox 36.2 C L 71 18 120/79 100 10/29/22 10:19 10/29/22 10:19 10/29/22 10:19 10/29/22 10:19 10/29/22 10:19 Pain Score Most Recent Pain Score: Most Recent Pain Score Pain Level 3 10/29/22 10:19 Assessment Mental Status: Awake (Alert & Oriented to Patient Baseline) Airway and Respiratory Function: Patent airway with normal (patient baseline) respiratory exam Cardiovascular Function: Hemodynamically Stable Hydration Status: Adequately Hydrated Nausea & Vomiting: No Nausea or Vomiting Pain: Pain is tolerable per patient Peripheral Nerve Block: Patient did not receive a nerve block
== END 2022-10-29 10:39 | disposition home or self-care (01) ==
PROVIDERS: PCP Nurse Practitioner Family; Visit Provider Obstetrics & Gynecology
PROC: (CPT 58661; principal; 2022-10-29 07:30)
DX: Z30.2 Encounter for sterilization (principal); N83.8 Other noninflammatory disorders of ovary, fallopian tube and broad ligament
CPT/HCPCS: 58661; 81025; 88302; J1100; J1885; J2405; J2704; J3010

== ENCOUNTER 2022-11-17 11:10 | Outpatient (REF) | payer MEDICAID, SELFPAY | END 2022-11-17 11:11 | disposition home or self-care (01) | LOC: LBN 11:10 | PROVIDERS: PCP Nurse Practitioner Family; Visit Provider Nurse Practitioner Family | DX: N30.00 Acute cystitis without hematuria (principal) | CPT/HCPCS: 87077; 87086; 87186 ==

== ENCOUNTER 2023-08-23 19:25 | Outpatient (REF) | payer MEDICAID, SELFPAY | END 2023-08-23 19:26 | disposition home or self-care (01) | LOC: LBN 19:25 | PROVIDERS: PCP Nurse Practitioner Family; Visit Provider Nurse Practitioner Family | DX: J02.9 Acute pharyngitis, unspecified (principal) | CPT/HCPCS: 87070 ==

== ENCOUNTER 2023-10-13 19:21 | Outpatient (REF) | payer MEDICAID, SELFPAY | END 2023-10-13 19:22 | disposition home or self-care (01) | LOC: LBN 19:21 | PROVIDERS: PCP Nurse Practitioner Family; Visit Provider Physician Assistant Medical | DX: J02.9 Acute pharyngitis, unspecified (principal) | CPT/HCPCS: 87070 ==